=== PATIENT | female | born 1935 | race Caucasian/White ===

== ENCOUNTER 2019-05-09 12:23 | Inpatient (IN) ==
--- NOTE | 2019-05-09 14:00 | PROVIDER DOCUMENTATION ---
This chart was entered by Marylou Mack Scribe, acting as scribe for Lianne Edwards MD. HPI-Musculoskeletal Pain/Inj - GENERAL Chief Complaint: Hip Pain Stated Complaint: fall 1 week ago, increased pain Time Seen by Provider: 05/09/19 12:41 Source: patient, family (Son) - HX OF PRESENT ILLNESS-MUSKULOSKELTAL Nature of Presenting Problem: 83 y/o female presents to the ED with pain to sacral/coccygeal area after fall on Friday. Son states the patient was seen here Friday after fall with negative hip and low back work up with continued pain since that time with the patient u nable to stand or even sit on the bedside and difficulty rolling over in bed. She tried taking her tramadol at home but this did not help. Onset/Duration: 6 days ago Timing: still present Modifying Factors: worse with: movement, palpation Any recent injury?: Yes (fall ) Locality of Occurance: Home Similar Symptoms Previously?: Yes Recently seen or treated by another doctor?: Yes (Friday ) - FALL INJURY Location of Pain/Injury: reports: other (sacrum/coccyx) Pain Radiation: reports: no radiation Reason for Fall: reports: unknown Review of Systems - Adult - REVIEW OF SYSTEMS - ADULT Constitutional: reports: no symptoms reported Eyes: reports: no symptoms reported Ears, Nose, Mouth & Throat: reports: no symptoms reported Cardiovascular: reports: no symptoms reported Respiratory: reports: no symptoms reported Gastrointestinal: denies: abdominal pain, diarrhea, nausea, vomiting Genitourinary: reports: no symptoms reported Musculoskeletal: reports: other (sacral/coccygeal pain). denies: joint pain, neck pain Integumentary: reports: no symptoms reported Neurological: denies: dizziness/vertigo, headache/migraines, syncope Psychiatric: reports: no symptoms reported Endocrine: reports: no symptoms reported Hematologic/Lymphatic: reports: no symptoms reported Allergic/Immunologic: reports: no symptoms reported All Other Systems: Reviewed and Negative Past History - Adult - PAST MEDICAL HISTORY-ADULT Review of Records: reports: Old Records Reviewed, Nursing Assessment Review, Medications Reviewed Major Childhood Illnesses: reports: denies history Cardiovascular: reports: HTN Respiratory: reports: denies history Gastrointestinal: reports: denies history Genitourinary: reports: denies history Musculoskeletal: reports: denies history Neurological: reports: denies history Psychiatric: reports: denies history Endocrine/Immune: reports: Diabetes, thyroid disorder - PRIOR SURGERIES/PROCEDURES Surgical/Procedure History: reports: reviewed, not pertinent, back/neck - FAMILY HISTORY Family History: reviewed, not pertinent - SOCIAL HISTORY Smoking: non-smoker Substance Use: none/never Physical Exam-Injury Related - Physical Exam-Injury Related Initial Vital Signs Reviewed: Yes General Appearance: alert, no apparent distress Head, Ears, Nose, Mouth & Throat: normocephalic/atraumatic, moist mucous membranes Neck: non-tender, full range of motion, supple Respiratory: chest non-tender, lungs clear, normal breath sounds, no respiratory distress, no accessory muscle use Cardiovascular: normal peripheral pulses, regular rate, rhythm Abdominal Exam: normal bowel sounds, non tender, soft Back Exam: no CVA tenderness, other (tender to sacrum/coccyx, bilateral buttocks). negative: vertebral tenderness Extremity: normal range of motion, normal inspection, no pedal edema, pelvis stable. negative: deformity Integumentary: normal color, warm/dry. negative: diaphoresis, ecchymosis Neurologic: grossly normal Psych/Mental Status: normal mood/affect, oriented x 3 - Glascow Coma Score Best Eye Response (Mauri): (4) open spontaneously Best Verbal Response (Mauri): (5) oriented Best Motor Response (Mauri): (6) obeys commands [place] Total: 15 Progress - PLAN OF CARE/RESULTS Progress/Plan/Lab Results: Vital Signs - 8 hr 05/09/19 12:30 Temperature 98.7 F Pulse Rate 75 Respiratory Rate 16 Blood Pressure 142/79 O2 Sat by Pulse Oximetry 97 Laboratory Results - last 24 hr 05/09/19 05/09/19 15:55 15:55 WBC 5.67 RBC 3.58 L Hgb 10.9 L Hct 34.1 L MCV 95.3 MCH 30.4 MCHC 32.0 L RDW Std Deviation 13.2 Plt Count 174 MPV 12.0 H Immature Gran % (Auto) 0.0 Neut % (Auto) 71.0 Lymph % (Auto) 20.1 L [place]les % (Auto) 5.5 Eos % (Auto) 3.0 Baso % (Auto) 0.4 Immature Gran # (Auto) 0.00 Neut # (Auto) 4.03 Lymph # (Auto) 1.14 L [place] # (Auto) 0.31 Eos # (Auto) 0.17 Baso # (Auto) 0.02 PT 12.8 INR 0.95 PTT (Actin FS) 28.6 Orders Category Date Time Status Philip Cath Insertion ORDERED Care 05/09/19 15:[address] LUMBAR SPINE W/O CONTRAST [CT] Stat Exams 05/09/19 13:[address] PELVIS W/O CONTRAST [CT] Stat Exams 05/09/19 13:16 Completed CBC WITH ELECTRONIC DIFF [HEME] Stat Lab 05/09/19 15:55 Completed COMPREHENSIVE METABOLIC PANEL [CHEM] Stat Lab 05/09/19 15:55 Received PROTIME WITH INR [COAG] Stat Lab 05/09/19 15:55 Completed PTT [COAG] Stat Lab 05/09/19 15:55 Completed URINALYSIS W/POSS RFLX CULT [URINALYSIS] Stat Lab 05/09/19 15:26 Uncollected Morphine Med 05/09/19 15:26 Discontinued 4 mg IV NOW ONE Ondansetron [Zofran] Med 05/09/19 15:26 Discontinued 4 mg IV NOW ONE Patient with CT showing bilateral sacral alar wing fracture. Patient states she is unable to ambulate. Will need admission, PT consult and possible placement. Spoke to hospitalist, BULMARO Glass, chief controller tower for hospitalist who accepted patient for admission. Further orders to be placed by their team. Result Diagrams: 05/09/19 15:55 - CT/MRI 1 CT Study: Lumbar Spine, Pelvis Impression: Abnormal (CT LUMBAR SPINE W/O CONTRAST, CT PELVIS W/O CONTRAST - 05/09/2019 INDICATION: fall, unable to ambulate, seen here recently COMPARI SON: 05/03/2019 FINDINGS: Lumbar spine: There is stable laminectomies and fusion changes at L3-L4-L5. Stable grade 1 anterolisthesis of L4 and L5. No hardware fracture or loosening. No fracture or subluxation. Pelvis: There are nondisplaced fractures through both sacral wings. These may been present previously but are more visible on today's exam. IMPRESSION: Subtle nondisplaced fractures through both sacral wings. This exam was performed using automated exposure control, adjustment of mA or kV according to patient size, and/or use of iterative reconstruction technique Electronically signed by Jayson Kent 05/09/2019 3:13 PM) - CONSULTS/PCP/HOSPITALIST Notification #1 *Consult/PCP/Hospitalist*: Duane Glass Time Discussed: 15:48 Reason/Comments: bilateral sacral wing fractures Consult Disposition: Admit Departure - Departure Date of Disposition Decision: 05/09/19 Time of Disposition Decision: 15:48 DIAGNOSIS: Pelvic fracture, Fall, Unable to ambulate Disposition: ADMITTED INPATIENT 09 Certified Medical Emergency: Emergent Condition: Stable Referrals and Follow-Ups: None,PCP [Primary Care Provider] - - Critical Care Note This patient required my direct & personal management of CC.: No Attestation - Physician/ JOSÉ Attestation Patient care was provided by Advanced Practice Provider:: No The physician spent face to face time with patient:: Yes Advanced Practice Provider documentation review:: Supervising physician onsite and consulted in the evaluation and care of this patient. The physician did have a face to face encounter with the patient. This chart was documented by the indicated scribe, (Marylou Mack, Scribe) and accurately reflects the services I performed and decisions made by me, Lianne Edwards MD, as attested by the provider's signature.
--- NOTE | 2019-05-09 15:16 | Diag Imaging Result Doc PS360 ---
CT LUMBAR SPINE W/O CONTRAST, CT PELVIS W/O CONTRAST - 05/09/2019 INDICATION: fall, unable to ambulate, seen here recently COMPARISON: 05/03/2019 FINDINGS: Lumbar spine: There is stable laminectomies and fusion changes at L3-L4-L5. Stable grade 1 anterolisthesis of L4 and L5. No hardware fracture or loosening. No fracture or subluxation. Pelvis: There are nondisplaced fractures through both sacral wings. These may been present previously but are more visible on today's exam. IMPRESSION: Subtle nondisplaced fractures through both sacral wings. This exam was performed using automated exposure control, adjustment of mA or kV according to patient size, and/or use of iterative reconstruction technique Electronically signed by Jayson Kent 05/09/2019 3:13 PM
[2019-05-09] MEDS ORDERED: MORPHINE IV ONE (15:26)
[2019-05-09] MEDS ORDERED: ZOFRAN IV ONE (15:26)
[2019-05-09 16:02] LABS: BASO# 0.02 X1000 (0.0-0.2); BASO% 0.4 % (0.0-0.8); EOS# 0.17 X1000 (0.0-0.7); HEMATOCRIT 34.1 % (37.0-47.0); HEMOGLOBIN 10.9 g/dL (12.0-16.0); LYMPH# 1.14 X1000 (1.2-3.4); LYMPH% 20.1 % (20.5-51.1); MCH 30.4 PG (27-31); MCV 95.3 FL (81-99); MONO# 0.31 X1000 (0.11-0.59); MONO% 5.5 % (1.7-9.3); NEUT# 4.03 X1000 (1.4-6.5); PLT 174 X1000 (130-400); RBC 3.58 XMIL (4.2-5.4); RDW 13.2 % (11.5-14.5); WBC 5.67 X1000 (4.8-10.8)
[2019-05-09 16:16] LABS: INR 0.95; PROTIME 12.8 Seconds (11.0-16.0)
[2019-05-09 16:17] LABS: PTT 28.6 Seconds (22.3-41.8)
[2019-05-09 16:20] LABS: ALB/GLOB RATIO 1.3; ALBUMIN 3.6 g/dL (3.5-5.0); CALCIUM 9.4 mg/dL (8.8-10.2); CREATININE 1.1 mg/dL (0.5-0.9); POTASSIUM 4.7 mmol/L (3.5-5.1); TOTAL BILIRUBIN 0.33 mg/dL (0.20-1.00); TOTAL PROTEIN 6.3 g/dL (6.3-8.3)
[2019-05-09] MEDS ORDERED: ZOFRAN IV PRN (16:36)
[2019-05-09] MEDS ORDERED: ULTRAM PO PRN (16:45)
[2019-05-09 17:47] LABS: URINE SOURCE CATH
[2019-05-09 17:50] LABS: BILIRUBIN URINE NEGATIVE (NEGATIVE); BLOOD URINE NEGATIVE (NEGATIVE); COLOR YELLOW; GLUCOSE URINE NEGATIVE (NEGATIVE); KETONE URINE NEGATIVE (NEGATIVE); LEUKOCYTES URINE NEGATIVE (NEGATIVE); NITRITE URINE NEGATIVE (NEGATIVE); PROTEIN URINE NEGATIVE (NEGATIVE); SP GRAVITY URINE 1.015; TURBIDITY URINE CLEAR (CLEAR); UR EPITHELIAL CELLS <10 /HPF (<10); URINE BACTERIA NEGATIVE /HPF; URINE RBC <10 /HPF (<10); URINE WBC <10 /HPF (<10); UROBILINOGEN URINE NORMAL (NORMAL)
--- NOTE | 2019-05-09 18:23 | HISTORY AND PHYSICAL ---
CHIEF COMPLAINT: Pelvic pain. HISTORY OF PRESENT ILLNESS: This is an 83-year-old female who presents to the emergency room complaining of sacral and pelvic pain since Friday. The patient fell Friday, was evaluated in the emergency room, and discharged home. The son and the patient state that at the time of her discharge she was unable to stand, sit on the bedside, or walk due to pain. They state that through this last 6 days that her pain has increased and has progressed to the point that her has had to pick her up off of the bed and sit her on the toilet, pick her up off the toilet, and place her back in the bed. She returned today. A pelvis CT was performed which revealed subtle nondisplaced fractures through both sacral wings. Philip catheter was placed and she is being admitted for further evaluation and treatment. PAST MEDICAL HISTORY: Diabetes mellitus, hypertension, and hypothyroid. PAST SURGICAL HISTORY: Denies. SOCIAL HISTORY: She denies any alcohol, tobacco, or illicit drug use. She is and lives with her . ALLERGIES: Penicillin with unknown reaction. HOME MEDICATIONS: Flonase, gabapentin, levothyroxine, tramadol, and Effexor. REVIEW OF SYSTEMS: Discussed with the patient with pertinent positives stated in the HPI. She denied any syncope, dizziness, chest pain, palpitations, shortness of breath, cough, fever, chills, any night sweats, any nausea, vomiting, diarrhea, constipation, black or bloody vomitus or stools, hematuria, dysuria, frequency, urgency. PHYSICAL EXAMINATION: GENERAL: This is an 83-year-old female who is lying on the stretcher in the emergency room in no distress. VITAL SIGNS: Blood pressure is 156/87, with a heart rate of 71, respirations are 16, temperature is 98.1 degrees oral, with room air saturations 98%. HEENT: Head is normocephalic, atraumatic. Mucous membranes are moist. NECK: Supple with trachea midline. CARDIOVASCULAR: Regular rate and rhythm. S1 and S2 appreciated. She has no lower extremity edema. Calves are nontender bilateral with peripheral pulses palpable x4 extremities. PULMONARY: Breath sounds are clear with no increased work of breathing noted. Chest rises and falls symmetrically with respiration. Chest wall is nontender to palpation. GASTROINTESTINAL: Abdomen is soft, nontender, nondistended, with bowel sounds in all 4 quadrants. MUSCULOSKELETAL: She does have pain to her sacrum and buttocks on palpation and movement. NEUROLOGIC: She is alert and oriented x3. SKIN: Warm and dry. LABS: WBC is 5.6, with hemoglobin 10.9, hematocrit 34.1, and platelets 174,000. INR is 0.95. Sodium 139, potassium 4.7, BUN 22, creatinine 1.1, with a glucose of 133. Urinalysis is essentially negative. Lumbar spine CT revealed subtle nondisplaced fractures through both sacral wings. CT of the pelvis revealed subtle nondisplaced fractures through both sacral wings. ASSESSMENT AND PLAN: 1. Bilateral nondisplaced sacral fractures. 2. Pain secondary to #1. 3. Diabetes mellitus. 4. Hypertension. 5. Hypothyroid. PLAN: The patient will be admitted to the hospital. Philip catheter has been placed. We will keep a strict I and O. She will be placed on a diabetic diet with fingerstick blood sugars and sliding scale insulin. Physical therapy will be consulted. We will also consult Dr. Simon. Social Service consult for discharge planning with possible rehab. We will identify her home medications and continue as appropriate. Giving [place] q.4 hours for pain with Zofran for nausea. Recheck a BMP and CBC in the morning. For DVT prophylaxis, will use [*]. Patient was examined and plan was discussed with Dr. Cuevas. Further treatments pending hospital course. Dictated by ROCCO Manning for Jhoana Cuevas MD cc: ROCCO Manning MD
[2019-05-09] MEDS: NEURONTIN PO SCH (20:57)
[2019-05-10] MEDS: SYNTHROID PO SCH (06:11)
[2019-05-10 06:44] LABS: BASO# 0.02 X1000 (0.0-0.2); BASO% 0.5 % (0.0-0.8); EOS# 0.18 X1000 (0.0-0.7); EOS% 4.3 % (0.0-10.0); HEMATOCRIT 34.5 % (37.0-47.0); HEMOGLOBIN 10.6 g/dL (12.0-16.0); IMM GRAN# 0.02 X1000 (0.0-0.04); IMM GRAN% 0.5 % (0.0-0.5); LYMPH# 1.37 X1000 (1.2-3.4); LYMPH% 32.9 % (20.5-51.1); MCH 29.7 PG (27-31); MCHC 30.7 g/dL (33-37); MCV 96.6 FL (81-99); MONO# 0.23 X1000 (0.11-0.59); MONO% 5.5 % (1.7-9.3); MPV 11.9 FL (7.4-10.4); NEUT# 2.35 X1000 (1.4-6.5); NEUT% 56.3 % (42.2-75.2); PLT 173 X1000 (130-400); RBC 3.57 XMIL (4.2-5.4); RDW 13.2 % (11.5-14.5); WBC 4.17 X1000 (4.8-10.8)
[2019-05-10 07:01] LABS: CALCIUM 9.1 mg/dL (8.8-10.2); CREATININE 1.3 mg/dL (0.5-0.9); HEMOGLOBIN A1C 6.3 % (4.8-6.0); POTASSIUM 4.8 mmol/L (3.5-5.1)
[2019-05-10 07:17] LABS: EOS 3 % (1-10); LYMPHS 38 % (21-51); MONO 5 % (1-9); SEGS 54 % (42-75)
--- NOTE | 2019-05-10 08:23 | ORTHOPAEDICS CONSULTATION ---
DATE: 05/09/2019 CONSULT FROM: Hospitalist group. REASON FOR CONSULTATION: Sacral fractures. PAST MEDICAL HISTORY: 1. Diabetes 2. 2. Hypertension. 3. Hypothyroidism. PAST SURGICAL HISTORY: Lumbar spine surgery with laminectomies and fusion. MEDICATIONS: 1. Flonase. 2. Gabapentin. 3. Synthroid. 4. Tramadol. 5. Effexor. ALLERGIES: Patient reports allergy to penicillin. SOCIAL HISTORY: Patient lives in [place] with her son. She states she does not drive, however, is able to ambulate around the house without any assistive device. She denies any pain in her sacrum or pelvis prior to her fall. She denies any tobacco, alcohol, or drug use. FAMILY HISTORY: Noncontributory. REVIEW OF SYSTEMS: A 10-point review of systems was completed and is negative other than what is listed in the History of Present Illness. CHIEF COMPLAINT: Sacral fracture. HISTORY OF PRESENT ILLNESS: Ms. Luque is an 83-year-old lady who sustained a same-level fall at the house 1 week ago. She was initially seen in the ER that day where x-rays were done demonstrating no obvious fractures. She states throughout the week, she has been trying to walk and bear weight, however, has had significantly increased pain to the point where she can hardly get up to go to the bathroom and thus presented again last night. CT scan of the pelvis was done at that time demonstrating bilateral sacral insufficiency fractures, and Orthopedic Surgery was thus consulted for evaluation. The patient denies any numbness, tingling, or shooting pain in her legs. She denies any pain with movement of her legs or hip. She has no other complaints. PHYSICAL EXAMINATION: General: Ms. Luque is an 83-year-old female who appears well nourished, well developed, and in no acute distress. She is awake, alert, oriented x3. She is very polite and cooperative during examination. Vital Signs: Temperature is 97.8 degrees Fahrenheit, heart rate is 55, respiratory rate 18, blood pressure 120/81, and O2 saturations are 98% on room air. HEENT: Normocephalic and atraumatic. Respiratory: Nonlabored breathing. Cardiovascular: Regular rate and rhythm. Extremities: Examination of bilateral lower extremity shows skin intact. Nontender to palpation in the lateral aspect of her hips, thighs, knees, legs, and ankles. She has no pain with log roll of her legs bilaterally. She is nontender over the anterior aspect of her pubic symphysis and pelvis. She does have tenderness to palpation posteriorly around her sacrum on both the left and right side. Motor is intact of quadriceps, hamstrings, EHL, tibialis anterior, gastrocsoleus complex. Sensation intact to light touch L3-S1. Dorsalis pedis pulse palpable and equal bilaterally. IMAGING: CT scan of the pelvis was reviewed demonstrating a retained hardware in her lumbar spine from prior laminectomy and fusion at L3, L4, and L5. No signs of hardware fracture or loosening on the lumbar spine CT. CT scan of the pelvis was also reviewed demonstrating nondisplaced sacral insufficiency fractures bilaterally, more noted on the left side than the right eye. ASSESSMENT: This is an 83-year-old female with bilateral sacral alar fractures. PLAN: A long discussion was had with the patient regarding diagnosis and treatment options. She has nondisplaced fractures, which I discussed with her. These should be stable, and she should be able to bear weight through this, as her posterior ligament structure should be uninvolved. We will plan on treating these conservatively without surgery. She can be weightbearing as tolerated to bilateral lower extremities. We will have physical therapy work with her on gait training and mobilization. Given the amount of pain she has been having with ambulation, I think discharge to a jail facility would probably be beneficial to help with her strength and mobilization over the next couple of weeks. She will need to be placed on chemical DVT prophylaxis for 6 weeks. We will get inlet, outlet, and AP views of the pelvis post mobilization today to ensure no further displacement after she gets up and bears weight. She will follow up with me at [facility] in 2 weeks with repeat x-rays. Thank you for the consultation. Please call with any questions.
[2019-05-10] MEDS: FLONASE NAS SCH (09:15)
[2019-05-10] MEDS: EFFEXOR PO SCH (09:16)
[2019-05-10] MEDS: MIRALAX PO SCH (09:17)
--- NOTE | 2019-05-10 09:57 | Diag Imaging Result Doc PS360 ---
EXAM: CHEST-1 VIEW 05/10/2019 HISTORY: REHAB TECHNIQUE: AP portable upright at 0946 COMMENT: There are bilateral skin folds. There are no previous studies. There is calcification of the aortic arch. The heart size and pulmonary vascularity are within normal limits. There are apparent granulomata present bilaterally and calcified nodes in the aorticopulmonary window. IMPRESSION: No evidence of acute disease. Electronically signed by Dennys Garcia 05/10/2019 9:55 AM
[2019-05-10] MEDS: NS 1,000 ML IV SCH ×2 (11:24→23:54)
[2019-05-10] MEDS: LOVENOX SUBQ SCH (11:24)
[2019-05-10] MEDS ORDERED: VITAMIN D PO SCH (14:30)
--- NOTE | 2019-05-10 16:28 | PROGRESS NOTE ---
DATE: 05/10/2019 SUBJECTIVE: The patient is resting comfortably in bed. She has no complaints at this time. OBJECTIVE: Vital Signs: Temperature 98.4 degrees, blood pressure 130/76, heart rate 68, respirations 16, O2 saturation 96% on room air. General: This is an elderly female lying in bed in no acute distress. Heart: S1, S2 normal. Regular rate and rhythm. Lungs: Clear to auscultation bilaterally. Abdomen: Positive bowel sounds. Soft, nontender, nondistended. Extremities: No edema, no cyanosis. Neurologic: The patient is alert and oriented x3. LABS: White blood cell count 4.1, hemoglobin 10, hematocrit 34, platelets 173,000. Potassium 4.8, BUN 22, creatinine 1.3, glucose 124. Hemoglobin A1c 6.3. ASSESSMENT AND PLAN: 1. Bilateral sacral alar fractures. The patient has been evaluated by the orthopedic surgeon who recommends conservative management to include physical therapy for gait training and mobilization. He states that the patient will need to be on deep venous thrombosis prophylaxis for 6 weeks. 2. Acute kidney injury. We will start the patient on gentle IV fluid hydration and monitor her urine output closely. 3. Diabetes mellitus. We will continue on sliding scale insulin. 4. Hypothyroidism. Continue on Synthroid. 5. Constipation. We will start the patient on MiraLAX and Colace. 6. Vitamin D deficiency. We will start the patient on vitamin D replacement. 7. Deep vein thrombosis prophylaxis. Continue on Lovenox. 8. Disposition. Helpdesk Administrator has been consulted for inpatient rehab placement. cc: Jhoana Cuevas MD MTDD
[2019-05-10] MEDS: COLACE PO SCH (19:59)
[2019-05-10] MEDS: NEURONTIN PO SCH (19:59)
[2019-05-11] MEDS: NS 1,000 ML IV SCH (00:21)
[2019-05-11] MEDS: SYNTHROID PO SCH (06:49)
[2019-05-11 07:01] LABS: CALCIUM 8.9 mg/dL (8.8-10.2); POTASSIUM 4.9 mmol/L (3.5-5.1)
[2019-05-11] MEDS: EFFEXOR PO SCH (08:30)
[2019-05-11] MEDS: MIRALAX PO SCH (08:31)
[2019-05-11] MEDS: FLONASE NAS SCH (08:31)
[2019-05-11] MEDS: LOVENOX SUBQ SCH ×2 (08:31→16:48)
[2019-05-11] MEDS: COLACE PO SCH ×2 (08:31→22:39)
[2019-05-11] MEDS: NORCO-5 PO PRN ×3 (08:31→22:40)
--- NOTE | 2019-05-11 20:52 | PROGRESS NOTE ---
DATE: 05/11/2019 INTERVAL HISTORY: No acute events overnight. Ms. Luque is denying any complaints. She wants me to take the Philip catheter out now. She says she was able to walk with the help of physical therapy and that we are awaiting rehab bed availability. OBJECTIVE: Vital signs: Temperature of 97.9 degrees, pulse 64, respiratory rate 20, blood pressure 140/90, saturating 98% on room air. On physical examination, not in any acute distress. Oral cavity is moist. Air entry bilaterally equal. No wheeze, rhonchi or crackles. S1, S2 normal. No murmur or gallop. Abdomen is soft, nontender. No lower extremity edema. She has a Philip catheter. She is able to raise both lower extremities above ground level. Input and output suggest she had a total of 2.4 L urine so far yesterday. LABORATORY DATA: Labs suggestive of no CBC today. BMP suggestive of improvement in BUN and creatinine. Microbiology: No data. No new microbiological data. DIAGNOSTIC DATA: No new imaging data. ASSESSMENT AND PLAN: 1. Bilateral sacral alar fractures after mechanical fall. Orthopedic team recommends conservative management. Continue [place] as needed for pain, enoxaparin for deep venous thrombosis prophylaxis, MiraLAX and docusate to avoid constipation as well as physical therapy as tolerated. Social Service rehab consult has been placed. 2. Others continue levothyroxine for hypothyroidism; gabapentin for neuropathic pain. 3. Disposition. Awaiting rehab placement. Plan of care discussed with the patient. Her questions have been answered. cc: Vince You MD
[2019-05-11] MEDS ORDERED: LACTULOSE PO ONE (22:38)
[2019-05-11] MEDS: NEURONTIN PO SCH (22:40)
[2019-05-12] MEDS: SYNTHROID PO SCH (07:44)
[2019-05-12] MEDS: EFFEXOR PO SCH (11:45)
[2019-05-12] MEDS: LOVENOX SUBQ SCH (11:45)
[2019-05-12] MEDS: MIRALAX PO SCH (11:45)
[2019-05-12] MEDS: COLACE PO SCH (11:45)
[2019-05-12] MEDS: FLONASE NAS SCH (11:45)
[2019-05-12] MEDS: NORCO-5 PO PRN (11:47)
--- NOTE | 2019-05-12 15:26 | PROGRESS NOTE ---
DATE: 05/12/2019 INTERVAL HISTORY: Her urine catheter was removed. The patient states she had a tough time coming out of bed and sitting on the commode because of pain. She also has some urine incontinence because she was not able to come out of bed. We discussed about allowing her to have a brief. We also discussed about using a bedpan. She denies any chest pain or shortness of breath. VITALS: Temperature 98.2 degrees, pulse 63, respiratory rate 20, blood pressure 150/70 saturating 99 percent on room air. PHYSICAL EXAMINATION: General: Not in acute distress. Oral cavity: Moist. Lungs: Air entry bilaterally equal. No wheeze, rhonchi or crackles. Heart: S1, S2 normal. No murmur or gallop. Abdomen: Soft, nontender. Extremities: No lower extremity edema. She does not have Philip catheter. She is able to perform flexion, extension at bilateral interphalangeal joints and lower extremity ankle joint and knee joint, as well as hip joint. LABS: No CBC today. BMP suggests adequate kidney function, which appears to be stable. However, it was performed yesterday. ASSESSMENT AND PLAN: 1. Bilateral sacral alar fracture after mechanical fall. Orthopedics recommend conservative management and weightbearing as tolerated. Continue [place] as needed for pain, enoxaparin for deep vein thrombosis prophylaxis for at least 4 to 6 weeks as per Orthopedics recommendation, MiraLAX to avoid constipation. Rehabilitation bed is pending. 2. Others. Continue levothyroxine for hypothyroidism and gabapentin for neuropathic pain. 3. Disposition. Awaiting rehabilitation. Plan of care discussed with the patient. Her questions have been answered. cc: Vince You MD
[2019-05-12] MEDS ORDERED: DULCOLAX PR PRN (20:58)
[2019-05-13] MEDS: SYNTHROID PO SCH (06:17)
[2019-05-13] MEDS: COLACE PO SCH ×2 (06:17→10:26)
[2019-05-13 06:41] LABS: BASO# 0.04 X1000 (0.0-0.2); EOS# 0.15 X1000 (0.0-0.7); EOS% 3.6 % (0.0-10.0); HEMATOCRIT 31.2 % (37.0-47.0); HEMOGLOBIN 9.8 g/dL (12.0-16.0); IMM GRAN# 0.02 X1000 (0.0-0.04); IMM GRAN% 0.5 % (0.0-0.5); LYMPH# 1.25 X1000 (1.2-3.4); MCH 29.7 PG (27-31); MCHC 31.4 g/dL (33-37); MCV 94.5 FL (81-99); MONO% 9.6 % (1.7-9.3); MPV 11.7 FL (7.4-10.4); NEUT# 2.31 X1000 (1.4-6.5); NEUT% 55.3 % (42.2-75.2); PLT 212 X1000 (130-400); RDW 12.7 % (11.5-14.5); WBC 4.17 X1000 (4.8-10.8)
[2019-05-13 07:04] LABS: CALCIUM 9.3 mg/dL (8.8-10.2); POTASSIUM 5.1 mmol/L (3.5-5.1)
[2019-05-13] MEDS: MIRALAX PO SCH ×2 (08:47→10:26)
[2019-05-13] MEDS: NEURONTIN PO SCH (08:47)
[2019-05-13] MEDS: FLONASE NAS SCH (10:25)
[2019-05-13] MEDS: LOVENOX SUBQ SCH (10:25)
[2019-05-13] MEDS: EFFEXOR PO SCH (10:26)
[2019-05-13] MEDS: NORCO-5 PO PRN (10:28)
[2019-05-13] MEDS ORDERED: DULCOLAX PR SCH (11:00)
[2019-05-13 11:51] VITALS: BP 151/63
--- NOTE | 2019-05-13 12:31 | DISCHARGE SUMMARY ---
ADMISSION DATE: 05/09/2019 DISCHARGE DATE: 05/13/2019 DISCHARGE DISPOSITION: To rehab. DISCHARGE CONDITION: Hemodynamically stable. The patient had a large bowel movement. She has been able to come out of bed and walk using a walker with Physical Therapy's help. Her pain is well controlled. She was advised about anticoagulation and to watch out for signs of bleeding. DISCHARGE DIAGNOSES: 1. Bilateral sacral alar fracture after mechanical fall, managed nonoperatively. 2. Constipation. 3. Severe sacral pain secondary to alar fracture. OTHER DIAGNOSES: 1. History of hypothyroidism. 2. History of neuropathic pain. DISCHARGE MEDICATIONS: 1. Fluticasone nasal spray 1 spray intranasally daily. 2. Levothyroxine 88 mcg daily. 3. Venlafaxine 50 mg daily. 4. Gabapentin 300 mg at nighttime, 15 capsules have been prescribed. 5. Dulcolax 10 mg per rectal every 12 hours, hold if the patient has 2 bowel movements in 24 hours. 6. MiraLAX 17 grams b.i.d. 7. Hershey 5 one tablet every 6 hours as needed for pain, 15 tablets have been prescribed. 8. Xarelto 10 mg daily for 30 days for DVT prophylaxis. Monitor for signs and symptoms of bleeding. PHYSICAL EXAMINATION: Vital Signs: At the time of discharge, temperature 98.1 degrees, pulse 67, respiratory rate 18, blood pressure 130/60, saturating 100% on room air. General: Not in acute distress. HEENT: Oral cavity is moist. Lungs: Air entry bilaterally equal. No wheeze, rhonchi, crackles. Heart: S1, S2 normal. No murmur or gallop. Abdomen: Soft, nontender. Extremities: No lower extremity edema. She is able to perform flexion and extension in bilateral interphalangeal, ankle, knee, and hip joints. LABORATORY DATA: At the time of discharge, hemoglobin 9.8, platelets 212,000. BUN 17, creatinine 1, GFR 53, blood glucose 131. Hemoglobin A1c was 6.3. MICROBIOLOGY: No data. IMAGING DURING HOSPITAL ADMISSION: On presentation, lumbar CT had stable nondisplaced fracture through both sacral wings. Pelvic CT on 05/09/2019 had subtle nondisplaced fractures through both sacral wings. Chest x-ray on admission did not have any evidence of acute disease. HOSPITAL COURSE SUMMARY: Ms. Luque is an 83-year-old, lady, who presented on 05/09/2019 because of sacral and pelvic pain since 5 days prior to current presentation. The patient initially fell 5 days ago, and was evaluated in the emergency room. At that time, x-ray of the lumbar spine was performed, which did not have any acute disease, and she was sent back home. However, her sacral pain started getting worse and she was not able to ambulate. She was not able to stand or sit on the bedside or walk because of pain, and her son had to help her a lot, which progressively was getting worse, so the patient decided to come back to the hospital again. A pelvic and lumbar CT scan was performed, which had detected subtle nondisplaced fracture through both sacral wings, so Orthopedic team was consulted for further management, and the patient was admitted. Orthopedics, Dr. Simon, saw the patient on 05/10/2019, and considering the nondisplaced nature of her fracture, she was allowed to weight bear as tolerated, and Physical Therapy was consulted. At the time of discharge, the patient was able to tolerate physical therapy, and was able to walk in the hallway using a walker, so it was decided to discharge her to rehab to get her stronger and help her ambulate. She will be started on Xarelto for DVT prophylaxis. At the time of discharge, all discharge instructions were provided to her. The patient was supposed to follow up with Dr. Simon within 10 days to get the repeat x-ray of her sacrum, and continue activity as tolerated. TIME SPENT: 29 minutes of time was spent discharging this patient. Plan of care was discussed with the patient. All of her questions were satisfactorily answered. She should also get suppositories to avoid constipation. cc: MD TIFFANY York
[2019-05-14] MEDS ORDERED: XARELTO PO SCH (06:00)
== END 2019-05-13 15:40 | DRG 552 ==
LOC: SUPCPDRO → ED 12:23 → SUATTDRO 17:23 → 4N 17:23
PROVIDERS: ATTEND Internal Medicine